=== PATIENT | male | born 1960 | race Caucasian/White ===

== ENCOUNTER → 2018-02-27 | Outpatient (CLI) | payer BC ==
[~2018-02-27] MED LIST: ACHYD1T PO; ALLO100T PO; ASPI-86 PO; CPR500T PO; HYDR-91 PO; HYDR1TAB66 PO; HYDR25TA4 PO; LEVO500T69 PO; LORA-877 PO; PHEN200T27 PO; POTA5TAB PO; SIMV40TA2 PO; TMSL.4C PO
--- NOTE | 2018-02-27 09:28 | Diagnostic Imaging Report ---
CLINICAL INDICATION: Patient states he has low back pain and leg numbness which is chronic. No known injury. EXAM: MRI of the lumbar spine performed without IV contrast. Sequences include sagittal T2, sagittal T1, sagittal T2 fat-sat, and axial T2. COMPARISON: None. FINDINGS: There is low T1 and low T2 signal seen throughout the visualized thoracolumbar spine and sacrum. The low T1 signal is not lower than the intervertebral disc signal. There is levoscoliosis of the lumbar spine. There is high T2 signal involving the left L4 pedicle/pars interarticularis region. There is Modic type II degenerative signal changes anteriorly throughout the lumbar spine with associated mild to moderately hypertrophic spurs throughout. There is facet arthropathy/hypertrophy involving the lumbar spine. The visualized distal thoracic spinal cord, conus medullaris, and cauda equina nerve roots are unremarkable. The conus medullaris tip is seen at the upper L2 vertebral body level. There is no significant paraspinal fluid collection or mass. T12-L1: There is mild diffuse disc bulge and moderate bilateral facet arthropathy. There is mild central canal narrowing. There is no significant neural foraminal narrowing. L1-L2: There is a diffuse disc bulge with mild loss of intervertebral disc height. There is moderate bilateral facet arthropathy. There is mild central canal narrowing. There is mild left neural foraminal narrowing. L2-L3: There is a diffuse disc bulge with hypertrophic disc spurs extending in the far right lateral region and right foraminal region. There is severe right facet arthropathy/hypertrophy and mild left facet arthropathy. There is mild central canal narrowing. There is mild to moderate right neural foraminal narrowing and no significant left neural foraminal narrowing. L3-L4: There is diffuse disc bulge with severe bilateral facet arthropathy/hypertrophy and ligamentum flavum buckling. There is severe central canal narrowing, severe right neural foraminal narrowing and mild to moderate left neural foraminal narrowing. There is mild loss of intervertebral disc height. L4-L5: There is a diffuse disc bulge with disc spurs extending into the foraminal regions bilaterally. There is severe bilateral facet arthropathy/hypertrophy and ligamentum flavum buckling. There is severe central canal narrowing and severe bilateral neural foraminal narrowing. There is ill-defined appearance of the bilateral L5 pars interarticularis region concerning for pars defects. There is no significant listhesis seen. There is also high T2 signal and prominent low T1 signal in the L4-L5 interspinous region with endplate irregularity. These findings may be seen with Baastrup's disease. L5-S1: There is an asymmetric disc bulge with disc spurs extending into the left foraminal region. There is bilateral facet arthropathy/hypertrophy which is severe on the left and moderate on the right. There is mild central canal narrowing due to prominence of the posterior epidural fat. There is mild right neural foraminal narrowing and severe left neural foraminal narrowing. IMPRESSION: 1. There is concern for bilateral L4 spondylolysis with no significant listhesis. There is mild edema seen in the left L4 pars interarticularis region. Unknown if this is related to pseudoarthrosis with degenerative changes or chronicity of this pars defect. CT scan of the lumbar spine is suggested for further evaluation. 2. There is severe multilevel lumbar spine degenerative disease, as described above with levoscoliosis of the lumbar spine. Dictated by: Dictated on workstation # [id number]
== END ==
LOC: RAD 07:42
PROVIDERS: ATTEND Chiropractor
DX: M51.17 Intervertebral disc disorders with radiculopathy, lumbosacral region (principal); M48.07 Spinal stenosis, lumbosacral region; M99.73 Connective tissue and disc stenosis of intervertebral foramina of lumbar region; M41.86 Other forms of scoliosis, lumbar region; M51.16 Intervertebral disc disorders with radiculopathy, lumbar region; M46.86 Other specified inflammatory spondylopathies, lumbar region; M47.26 Other spondylosis with radiculopathy, lumbar region
CPT/HCPCS: 72148

== ENCOUNTER 2022-09-13 12:12 | Inpatient (IN) | payer BC, MEDICARE ==
[~2022-09-13] VITALS: Ht 183 cm; Wt 160.1 kg
--- NOTE | 2022-09-13 12:49 | ED General ---
General Stated Complaint: AMS Source of Information: Patient, EMS Exam Limitations: Physical Impairments History of Present Illness Date Seen by Provider: September 13, 2022 Time Seen by Provider: 12:35 Initial Comments Patient is a 62-year-old male who presents to the emergency department with a chief complaint of weakness, reported confusion worsening over the last several days. patient has a history of liver disease with previous hepatic encephalopathy. His last labs from [facility] are with the patient and his ammonia level was about 127 at the beginning of July. Patient is alert to self and location currently. He is confused and frequently loses his train of thought. He states that he had 3 falls today. He states he did not hit his head or sustain any injury. He denies nausea and vomiting. He states his bowels are normal. No urinary difficulties. No rashes, fever. No cough or shortness of breath. is the one who called EMS services this afternoon. Timing/Duration: Other (Unknown) Severity: Moderate Associated Systoms: Denies Symptoms Allergies and Home Medications Allergies Coded Allergies: No Known Drug Allergies (Unverified , 12/18/10) Patient Home Medication List Home Medication List Reviewed: Yes Allopurinol (Allopurinol) 100 Mg Tablet, 100 MG PO DAILY, (Reported) Entered as Reported by: WISAM DAMON on 11/09/14 08 Aspirin ([facility] Aspirin) 81 Mg Tab.chew, 81 MG PO DAILY, (Reported) Entered as Reported by: HENRY TERRY on 12/18/10 0018 Hydrochlorothiazide (Hydrochlorothiazide) 25 Mg Tablet, 25 MG PO DAILY, (Reported) Entered as Reported by: WISAM DAMON on 11/09/1458 Hydrocodone Bit/Acetaminophen (Lorcet Plus 10/325 Mg) 1 Tab Tablet, 1-2 TAB PO Q4H PRN for PAIN Prescribed by: LYNNETTE ELLIOTT on 11/10/14 1319 Levofloxacin (Levaquin 500 Mg) 500 Mg Tab, 500 MG PO DAILY Prescribed by: LYNNETTE ELLIOTT on 11/10/14 1319 Loratadine/Pseudoephedrine Sul (Claritin-D 24 Hour Tablet) 1 Each Tab.sr.24h, 1 EACH PO DAILY, (Reported) Entered as Reported by: WISAM DAMON on 11/09/14 08 Phenazopyridine Hcl (Pyridium) 200 Mg Tablet, 200 MG PO TID PRN for DISCOMFORT Prescribed by: LYNNETTE ELLIOTT on 11/10/14 1319 Simvastatin (Zocor) 40 Mg Tablet, 40 MG PO HS, (Reported) Entered as Reported by: HNERY TERRY on 12/18/10 0018 Review of Systems Review of Systems Constitutional: see HPI EENTM: other (dry mouth) Respiratory: no symptoms reported Cardiovascular: no symptoms reported Gastrointestinal: no symptoms reported Genitourinary: no symptoms reported Musculoskeletal: no symptoms reported Skin: no symptoms reported All Other Systems Reviewed Negative Unless Noted: Yes Past Pirqjpi-Daihpa-Sjxiwa Hx Past Medical History Reproductive Disorders: No Sexually Transmitted Disease: No Kidney Stones Physical Exam Vital Signs Vital Signs - First Documented 09/13/22 12:12 Temp 36.9 Pulse 81 Resp 14 B/P (MAP) 141/95 (110) Pulse Ox 97 O2 Delivery Room Air Capillary Refill : Height, Weight, BMI Height: 6'1.00" Weight: 279lbs. oz. 126.215108ml; BMI Method: General Appearance: No Apparent Distress, WD/WN Eyes: Bilateral Eye Normal Inspection, Bilateral Eye PERRL, Bilateral Eye EOMI HEENT: Other (dry fissured tongue) Neck: Normal Inspection Respiratory: Lungs Clear, Normal Breath Sounds, No Accessory Muscle Use, No Respiratory Distress Cardiovascular: Regular Rate, Rhythm, Normal Peripheral Pulses Gastrointestinal: Soft, Other (+ fluid wave; no tense ascites) Extremity: Normal Inspection, Normal Range of Motion, Pedal Edema (1-2+) Skin: Normal Color, Warm/Dry Progress/Results/Core Measures Suspected Sepsis SIRS Temperature: Pulse: Respiratory Rate: Laboratory Tests 09/13/22 12:30: White Blood Count 6.3 Blood Pressure / Mean: Laboratory Tests 09/13/22 12:30: Creatinine 1.47H, INR Comment 1.4, Platelet Count 99L, Total Bilirubin 2.8H Results/Orders Lab Results Laboratory Tests Test 09/13/22 12:30 Range/Units White Blood Count 6.3 4.3-11.0 10^3/uL Red Blood Count 3.72 L 4.30-5.52 10^6/uL Hemoglobin 12.8 L 13.3-17.7 g/dL Hematocrit 37 L 40-54 % Mean Corpuscular Volume 100 H 80-99 fL Mean Corpuscular Hemoglobin 34 25-34 pg Mean Corpuscular Hemoglobin Concent 34 32-36 g/dL Red Cell Distribution Width 14.9 H 10.0-14.5 % Platelet Count 99 L 130-400 10^3/uL Mean Platelet Volume 11.7 9.0-12.2 fL Immature Granulocyte % (Auto) 0 % Neutrophils (%) (Auto) 46 42-75 % Lymphocytes (%) (Auto) 34 12-44 % Monocytes (%) (Auto) 11 0-12 % Eosinophils (%) (Auto) 8 0-10 % Basophils (%) (Auto) 1 0-10 % Neutrophils # (Auto) 2.9 1.8-7.8 10^3/uL Lymphocytes # (Auto) 2.1 1.0-4.0 10^3/uL Monocytes # (Auto) 0.7 0.0-1.0 10^3/uL Eosinophils # (Auto) 0.5 H 0.0-0.3 10^3/uL Basophils # (Auto) 0.1 0.0-0.1 10^3/uL Immature Granulocyte # (Auto) 0.0 0.0-0.1 10^3/uL Percent Immature Platelet Fraction 6.7 0.0-7.6 % Prothrombin Time 17.7 H 12.2-14.7 SEC INR Comment 1.4 0.8-1.4 Activated Partial Thromboplast Time 40 H 24-35 SEC Sodium Level 138 135-145 MMOL/L Potassium Level 4.4 3.6-5.0 MMOL/L Chloride Level 107 98-107 MMOL/L Carbon Dioxide Level 25 21-32 MMOL/L Anion Gap 6 5-14 MMOL/L Blood Urea Nitrogen 21 H 7-18 MG/DL Creatinine 1.47 H 0.60-1.30 MG/DL Estimat Glomerular Filtration Rate 53 BUN/Creatinine Ratio 14 Glucose Level 88 70-105 MG/DL Calcium Level 8.8 8.5-10.1 MG/DL Corrected Calcium 9.7 8.5-10.1 MG/DL Total Bilirubin 2.8 H 0.1-1.0 MG/DL Aspartate Amino Transf (AST/SGOT) 79 H 5-34 U/L Alanine Aminotransferase (ALT/SGPT) 54 0-55 U/L Alkaline Phosphatase 135 40-136 U/L Ammonia 132 H 11-32 UMOL/L Total Protein 7.8 6.4-8.2 GM/DL Albumin 2.9 L 3.2-4.5 GM/DL Smear Scan YES My Orders Orders - DORON CALRK MD Ed Iv/Invasive Line Start (09/13/22 12:49) Cbc With Automated Diff (09/13/22 12:49) Comprehensive Metabolic Panel (09/13/22 12:49) Ammonia (09/13/22 12:49) Protime With Inr (09/13/22 12:49) Partial Thromboplastin Time (09/13/22 12:49) Vital Signs/I&O 09/13/22 12:12 Temp 36.9 Pulse 81 Resp 14 B/P (MAP) 141/95 (110) Pulse Ox 97 O2 Delivery Room Air Capillary Refill : Progress Note : Time: 13:27 Progress Note Patient seen and evaluated by me. Evaluation today includes physical exam, CBC, Chem-12, ammonia level, PT/PTT. Physical exam pertinent for well-developed well-nourished obese male who appears in no acute distress. Pleasant, affable. Oriented to person and situation. Oral mucosa is extremely dry. Heart is regular, lungs are clear. Abdomen slightly distended with positive fluid wave. No skin changes or other stigmata of liver disease observed on the abdomen. He does have 2+ pitting edema. Slight tremor to his hands but no defined asterixis. Differential diagnosis based on history and physical, hepatic encephalopathy, volume depletion. Labs reviewed by me, CBC shows a white count of 6.3 hemoglobin of 12.8, hematocrit 37, platelet count of 99. PT is 17.7 PTT 40, INR 1.4. His chemistry is normal/unremarkable except for a BUN of 21 and a creatinine of 1.47. Total bili is 2.8. AST 47 albumin slightly low at 2.9. His ammonia is 132. Medical records were from [facility] were reviewed from outpatient labs obtained on July 27, 2022. This shows an increase in his serum creatinine from 0.94 at that time to 1.47 today. At that time also his ammonia level was 123. His total bilirubin has also increased from 2.2-2.8. Patient does appear volume depleted. We will hold off on IV fluids at this time secondary to his liver disease and we do not want to volume overload him. I believe the majority of the reason the patient is here because he is a little bit too much to handle at home for his . Will admit to the medical floor observation after discussion with Dr. Navarrete, [facility]. Departure Communication (Admissions) Time/Spoke to Admitting Phy: 13:[address] Navarrete (hospitalist [facility]) who accepts patient for admission Impression Primary Impression: Hepatic encephalopathy Additional Impression: Increase in creatinine Disposition: ADMITTED INPATIENT Condition: Stable Admissions Decision to Admit Reason: Admit from ER (General) Decision to Admit/Date: September 13, 2022 Time/Decision to Admit Time: 13:27 Departure-Patient Inst. Referrals: MARIJA LINTON MD (PCP/Family) Primary Care Physician DORON CLARK MD September 13, 2022 12:49
[2022-09-13 12:55] LABS: HEMOGLOBIN 12.8 g/dL (13.3-17.7)
[2022-09-13 12:57] LABS: ALBUMIN 2.9 GM/DL (3.2-4.5); BASOPHILS # (AUTO) 0.1 10^3/uL (0.0-0.1); BASOPHILS % (AUTO) 1 % (0-10); EOSINOPHILS # (AUTO) 0.5 10^3/uL (0.0-0.3); EOSINOPHILS % (AUTO) 8 % (0-10); HEMATOCRIT 37 % (40-54); LYMPHOCYTES # (AUTO) 2.1 10^3/uL (1.0-4.0); LYMPHOCYTES % (AUTO) 34 % (12-44); MEAN CORPUSCULAR HEMOGLOBIN 34 pg (25-34); MEAN CORPUSCULAR HGB CONC 34 g/dL (32-36); MEAN CORPUSCULAR VOLUME 100 fL (80-99); MEAN PLATELET VOLUME 11.7 fL (9.0-12.2); MONOCYTES # (AUTO) 0.7 10^3/uL (0.0-1.0); MONOCYTES % (AUTO) 11 % (0-12); NEUTROPHILS # (AUTO) 2.9 10^3/uL (1.8-7.8); NEUTROPHILS % (AUTO) 46 % (42-75); PLATELET COUNT 99 10^3/uL (130-400); POTASSIUM 4.4 MMOL/L (3.6-5.0); WHITE BLOOD COUNT 6.3 10^3/uL (4.3-11.0)
[2022-09-13 12:58] LABS: CALCIUM 8.8 MG/DL (8.5-10.1)
[2022-09-13 12:59] LABS: TOTAL PROTEIN 7.8 GM/DL (6.4-8.2)
[2022-09-13 13:00] LABS: INR 1.4 (0.8-1.4); PROTHROMBIN TIME PATIENT 17.7 SEC (12.2-14.7)
[2022-09-13 13:01] LABS: BILIRUBIN,TOTAL 2.8 MG/DL (0.1-1.0)
[2022-09-13 13:03] LABS: CREATININE SERUM 1.47 MG/DL (0.60-1.30); SMEAR SCAN COMMENT YES
[2022-09-13] MEDS ORDERED: LACT10SO3 PO (15:03)
[2022-09-13] MEDS ORDERED: SIMV40TA25 PO (15:04)
[2022-09-13] MEDS ORDERED: METO50TA7 PO (15:04)
[2022-09-13] MEDS ORDERED: POTA15TA9 PO (15:04)
[2022-09-13] MEDS ORDERED: GABA300C PO ×2 (15:05)
[2022-09-13] MEDS ORDERED: TRAM50TA3 PO (15:06)
[2022-09-13] MEDS ORDERED: SPIR50TA PO (15:07)
[2022-09-13] MEDS ORDERED: FURO40TA4 PO (15:07)
[2022-09-13] MEDS ORDERED: ALLO100T PO (15:07)
[2022-09-13] MEDS ORDERED: ASPI-1238 PO (15:08)
[2022-09-13] MEDS ORDERED: CYCL10TA25 PO (15:08)
[2022-09-13] MEDS ORDERED: MELO15TA39 PO (15:08)
[2022-09-13] MEDS ORDERED: CHOL200059 PO (15:09)
[2022-09-13] MEDS ORDERED: MAGN250T13 PO (15:09)
[2022-09-13 15:10] VITALS: BP 141/95
[2022-09-13] MEDS ORDERED: RT-ALBUTEROL SULF 2.5 MG/3 ML PRE-MIX VIAL INH PRN (15:30)
[2022-09-13 15:59] VITALS: BP 127/70
[2022-09-13] MEDS: NS IV 1000 ML 1,000 ML IV SCH (16:53)
[2022-09-13] MEDS: KCL 10 MEQ TAB (MICRO K) PO SCH (16:54)
[2022-09-13 19:36] VITALS: BP 120/68
[2022-09-13] MEDS: GABAPENTIN 300 MG (NEURONTIN) CAP PO SCH (19:39)
[2022-09-13] MEDS: LACTULOSE SYRUP 10GM/15ML (ENULOSE) 30ML UDC PO SCH (19:39)
[2022-09-14] VITALS (7 sets, daily range): BP systolic 109–139; BP diastolic 67–81
[2022-09-14] MEDS: NS IV 1000 ML 1,000 ML IV SCH ×3 (04:57→19:11)
[2022-09-14 05:52] LABS: POTASSIUM 4.3 MMOL/L (3.6-5.0)
[2022-09-14 05:53] LABS: CALCIUM 8.6 MG/DL (8.5-10.1)
[2022-09-14 05:58] LABS: CREATININE SERUM 1.18 MG/DL (0.60-1.30)
[2022-09-14] MEDS: FUROSEMIDE 40 MG (LASIX) TAB PO SCH (06:04)
[2022-09-14] MEDS ORDERED: CYCLOBENZAPRINE 10 MG (FLEXERIL) TAB PO PRN (07:45)
[2022-09-14] MEDS: VITAMIN D3 25 MCG (1,000 UNITS) TABLET PO SCH (08:16)
[2022-09-14] MEDS: GABAPENTIN 300 MG (NEURONTIN) CAP PO SCH ×3 (08:17→21:34)
[2022-09-14] MEDS: SPIRONOLACTONE 25 MG (ALDACTONE) TAB PO SCH (08:17)
[2022-09-14] MEDS: KCL 10 MEQ TAB (MICRO K) PO SCH ×2 (08:18→18:26)
[2022-09-14] MEDS: ASPIRIN E.C. 81 MG (ECOTRIN) TAB PO SCH (08:18)
[2022-09-14] MEDS: meTOproloL SUCCINATE 50 MG (TOPROL XL) TAB PO SCH (08:19)
[2022-09-14] MEDS: LACTULOSE SYRUP 10GM/15ML (ENULOSE) 30ML UDC PO SCH ×3 (08:19→21:34)
[2022-09-14] MEDS: ALLOPURINOL 100 MG (ZYLOPRIM) TAB PO SCH (08:19)
--- NOTE | 2022-09-14 08:53 | Physical Therapy Evaluation ---
PT Evaluation-General Medical Diagnosis Admission Date September 13, 2022 at 14:44 Medical Diagnosis: hepatic encephalopathy Onset Date: September 13, 2022 Therapy Diagnosis Therapy Diagnosis: generalized weakness/impaired mobility Height/Weight Height (Feet): 6 Height (Inches): 1.00 Weight (Pounds): 279 Precautions Precautions/Isolations: Fall Prevention, Standard Precautions Referral Physician: Landon Reason for Referral: Evaluation/Treatment Medical History Current History ER secondary to confusion and weakness (3 falls per report) Social History Home: Single Level Current Living Status: Spouse Prior Prior Level of Function SCALE: Activities may be completed with or without assistive devices. 6-Dpzzeiaakt-lfmlmkz completes the activity by him/herself with no assistance from a helper. 5-Set-up or Clean-up Assistance-helper sets up or cleans up; patient completes activity. [place] assists only prior to or following the activity. 4-Supervision or Touching Assistance-helper provides verbal cues and/or touching/steadying and/or contact guard assistance as patient completes activity. Assistance may be provided throughout the activity or intermittently. 3-Partial/Moderate Assistance-helper does LESS THAN HALF the effort. [place] lifts, holds or supports trunk or limbs, but provides less than half the effort. 2-Substantial/Maximal Assistance-helper does MORE THAN HALF the effort. [place] lifts or holds trunk or limbs and provides more than half the effort. 5-Taaorpezn-pgnwnq does ALL the effort. Patient does none of the effort to complete the activity. Or, the assistance of 2 or more helpers is required for the patient to complete the activity. If activity was not attempted, code reason: 7-Patient Refused. 9-Not Applicable-not attempted and the patient did not perform the activity before the current illness, exacerbation or injury. 10-Not Attempted due to Environmental Limitations-(lack of equipment, weather restraints, etc.). 88-Not Attempted due to Medical Conditions or Safety Concerns. Bed Mobility: 6 Transfers (B,C,W/C): 6 Gait: 6 Indoor Mobility (Ambulation): Independent Prior Devices Use: None (per patient) PT Evaluation-Current Subjective Patient very confused but agrees to PT. Objective Patient Orientation: Person, Place Attachments: IV ROM/Strength ROM Lower Extremities limited due to edema Strength Lower Extremities 3-/5 grossly bilateral LE all planes Integumentary/Posture Bladder Incontinence: Yes Posture WFL Neuromuscular (Tone, Coordination, Reflexes) diminished coordination and motor planning Sensory Vision: Functional Hearing: Functional Transfers Lying to Sitting/Side of Bed(Q: 2 Sit to Stand (QC): 2 Chair/Dkb-vw-Xwtgi Xfer(QC): 2 Gait Mode of Locomotion: Walk Anticipated Mode of Locomotion: Walk Distance: 5 steps Gait Assistive Device: FWW Comments/Gait Description very unsteady Balance Sitting Static: Fair Sitting Dynamic: Fair Standing Static: Poor Standing Dynamic: Poor Assessment/Needs Patient will benefit from skilled PT to address functional strength and mobility to improve current LOF. Patient demonstrates severely diminished motor planning and coordination. Rehab Potential: Guarded PT Help Desk Intern Goals Shelter Goals PT Help Desk Intern Goals Time Frame: Oct 06, 2022 Roll Left & Right (QC): 6 Sit to Lying (QC): 6 Lying-Sitting on Side/Bed(QC): 6 Sit to Stand (QC): 6 Chair/Vmd-eb-Nphdp Xfer(QC): 6 Toilet Transfer (QC): 6 Walk 10 feet (QC): 5 Walk 50ft with 2 Turns (QC): 5 Walk 150 ft (QC): 5 PT Plan Problem List Problem List: Activity Tolerance, Functional Strength, Safety, Balance, Gait, Transfer, Bed Mobility, ROM Treatment/Plan Treatment Plan: Continue Plan of Care Treatment Plan: Bed Mobility, Education, Functional Activity Huang, Functional Strength, Gait, Safety, Therapeutic Exercise, Transfers Treatment Duration: Oct 06, 2022 Frequency: 6 times per week Estimated Hrs Per Day: .25 hour per day Patient and/or Family Agrees t: Yes Time Time In: 710 Time Out: 738 DATE: September 14, 2022 Total Billed Treatment Time: 28 Total Billed Treatment 1 visit EVModC 15 min FA 13 min TAMARA MCKINNEY PT September 14, 2022 08:53
--- NOTE | 2022-09-14 10:20 | History & Physical ---
HPI History of Present Illness: Pt sitting up in chair, unable to provide much history. He can state his name and that he is in the hospital. When asked why he came to the hospital he says "What do you mean?". When asked what symptoms he was having that made him come to the ER, he stated leg pain. He is unable to provide detail about the leg pain, including which leg, and he denies any falls. History from : Has been off of work for a little more than 2 years, originally for sciatic nerve issue, but in last year or year and a half, reports Dr. Levi had called and asked about his last drink, she states he has never drank. That's when they found out about his elevated ammonia and he has slowly gotten worse. He has had bowel trouble for a long time, having hard bowel movements and difficulty having BM. He started on Linzess at some point, and then was switched to lactulose. He was taking 45 ml four times per day, and he was still not having regular bowel movement, having to eat a lot of prunes to even have a BM which isn't every day. He has been having weakness in legs and confusion. At one point recently he did not remember her birthday, that was about 6-7 months ago and he has gradually had short term memory confusion wor sening. She just talked to him on the phone and could remember that he wants to go home to her, and that she can't get around by herself. She notes he has weakness in legs and tremor in his hands. Once he put a "cup of soup" in the microwave with no water and set off the smoke alarm and she hasn't allowed him in the kitchen anymore. Yesterday morning things came to a head, they were getting up out of bed, he took his morning meds, she has to put them in his mouth otherwise he'll just stare at them and forget what he is doing with them. To get from the bed to the bathroom is a very short distance, and he held on to bed, then dresser and she tried to see if he could use her old walker, he got to the bathroom and sometimes seems to have no control over his bladder. Yesterday he stood at the side of the bed and when she asked if he was going to the bathroom he just stared at her, then she heard something and realized he was peeing standing by the bed. When she asked if he felt it and knew what he was doing, he just said "huh?". His is a nurse. She states he does have diagnosis of cirrhosis of the liver and hepatic encephalopathy. He is the youngest of 10 siblings. She does not know what led to his cirrhosis. She does think he had a bought of drinking in the 80s when his mother but she didn't know him then. His has COPD and has to use a walker to get around. She can't drive. She had an attempted gastric bypass in 2002 and has had multiple intestinal issues since then. Source: patient Exam Limitations: clinical condition Date seen by provider: September 14, 2022 Time Seen by Provider: 09:15 Attending Physician [place] PCP Admitting Physician: Bj Navarrete MD Attending Physician: Bj Navarrete MD Consult Date of Admission September 13, 2022 at 14:44 Home Medications Home Medications Reviewed patient Home Medication Reconciliation performed by pharmacy medication reconciliations dealer support technician and/or nursing. Patients Allergies have been reviewed. Allergies Coded Allergies: No Known Drug Allergies (Unverified , 12/18/10) [id number]-Jbisyv Hx Patient Social History Smoking Status: Former Smoker Alcohol Use?: No Have you traveled recently?: No Past Medical History PMHx: per , patient unable to provide Cirrhosis Hepatic encephalopathy Sciatica Nephrolithiasis Hypertension Hyperlipidemia SurgHx: none Review of Systems ([facility]) Constitutional: other (unable to obtain due to patient condition) Reviewed Test Results Reviewed Test Results Lab Laboratory Tests Test 09/13/22 12:30 09/14/22 05:30 Range/Units White Blood Count 6.3 4.3-11.0 10^3/uL Red Blood Count 3.72 L 4.30-5.52 10^6/uL Hemoglobin 12.8 L 13.3-17.7 g/dL Hematocrit 37 L 40-54 % Mean Corpuscular Volume 100 H 80-99 fL Mean Corpuscular Hemoglobin 34 25-34 pg Mean Corpuscular Hemoglobin Concent 34 32-36 g/dL Red Cell Distribution Width 14.9 H 10.0-14.5 % Platelet Count 99 L 130-400 10^3/uL Mean Platelet Volume 11.7 9.0-12.2 fL Immature Granulocyte % (Auto) 0 % Neutrophils (%) (Auto) 46 42-75 % Lymphocytes (%) (Auto) 34 12-44 % Monocytes (%) (Auto) 11 0-12 % Eosinophils (%) (Auto) 8 0-10 % Basophils (%) (Auto) 1 0-10 % Neutrophils # (Auto) 2.9 1.8-7.8 10^3/uL Lymphocytes # (Auto) 2.1 1.0-4.0 10^3/uL Monocytes # (Auto) 0.7 0.0-1.0 10^3/uL Eosinophils # (Auto) 0.5 H 0.0-0.3 10^3/uL Basophils # (Auto) 0.1 0.0-0.1 10^3/uL Immature Granulocyte # (Auto) 0.0 0.0-0.1 10^3/uL Percent Immature Platelet Fraction 6.7 0.0-7.6 % Prothrombin Time 17.7 H 12.2-14.7 SEC INR Comment 1.4 0.8-1.4 Activated Partial Thromboplast Time 40 H 24-35 SEC Sodium Level 138 137 135-145 MMOL/L Potassium Level 4.4 4.3 3.6-5.0 MMOL/L Chloride Level 107 110 H 98-107 MMOL/L Carbon Dioxide Level 25 18 L 21-32 MMOL/L Anion Gap 6 9 5-14 MMOL/L Blood Urea Nitrogen 21 H 20 H 7-18 MG/DL Creatinine 1.47 H 1.18 0.60-1.30 MG/DL Estimat Glomerular Filtration Rate 53 69 BUN/Creatinine Ratio 14 17 Glucose Level 88 77 70-105 MG/DL Calcium Level 8.8 8.6 8.5-10.1 MG/DL Corrected Calcium 9.7 8.5-10.1 MG/DL Total Bilirubin 2.8 H 0.1-1.0 MG/DL Aspartate Amino Transf (AST/SGOT) 79 H 5-34 U/L Alanine Aminotransferase (ALT/SGPT) 54 0-55 U/L Alkaline Phosphatase 135 40-136 U/L Ammonia 132 H 11-32 UMOL/L Total Protein 7.8 6.4-8.2 GM/DL Albumin 2.9 L 3.2-4.5 GM/DL Smear Scan YES Physical Exam-([facility]) Physical Exam Vital Signs VS - Last 72 Hours, by Label 09/13/22 09/13/22 09/13/22 09/13/22 12:12 14:43 15:00 15:10 Temp 36.9 36.0 36.9 Pulse 81 89 81 Resp 14 16 B/P (MAP) 141/95 (110) 122/68 Pulse Ox 97 95 97 97 O2 Delivery Room Air Room Air Room Air O2 Flow Rate 0.00 FiO2 21 09/13/22 09/13/22 09/13/22 09/13/22 15:20 15:59 19:31 19:36 Temp 36.5 36.6 Pulse 80 85 Resp 18 18 B/P (MAP) 127/70 (89) 120/68 (85) Pulse Ox 98 97 O2 Delivery Room Air Room Air Room Air Room Air O2 Flow Rate 0.00 0.00 FiO2 98 09/13/22 09/14/22 09/14/22 09/14/22 20:00 00:00 03:34 07:15 Temp 36.6 36.5 Pulse 77 83 Resp 18 18 B/P (MAP) 122/67 (85) 116/68 (84) Pulse Ox 97 96 O2 Delivery Room Air Room Air Room Air Room Air 09/14/22 09/14/22 09/14/22 08:00 08:02 12:13 Temp 36.4 36.6 Pulse 80 83 Resp 18 18 B/P (MAP) 109/69 (82) 128/81 (97) Pulse Ox 97 97 98 O2 Delivery Room Air Room Air Room Air O2 Flow Rate 0.00 Capillary Refill : Less Than 3 Seconds General Appearance: no apparent distress HEENT: PERRL/EOMI Respiratory: lungs clear, normal breath sounds Cardiovascular: regular rate, rhythm, no murmur Gastrointestinal: normal bowel sounds, non tender, soft Extremities: pedal edema Neurologic/Psychiatric: rubber stamps and dies supervisor II-XII nml as tested (slow to follow instructions), alert, abnormal cerebellar tests (able to do finger to nose testing but requires significant coaching, and is very slow to move finger out to touch examiner), other (no asterixis, oriented to self only) Skin: warm/dry Assessment/Plan Assessment/Plan Admission Status: Observation (1) Hepatic encephalopathy Status: Chronic Assessment & Plan: Ammonia 132, per has been even higher at times outpatient. Last BM two days ago and was "medium" per . Given failure of oral lactulose at home, will start enemas and rifaximin. Check UA and CXR for possible infection causing worsening encephalopathy. (2) Acute kidney injury Status: Acute Assessment & Plan: Uncertain etiology, improved this am. (3) Debility Assessment & Plan: Unclear how much is related to encephalopathy vs underlying, has chronic back pain with history of injections as well. PT. (4) Cirrhosis Status: Chronic Assessment & Plan: reports unknown etiology, clinic chart indicates CONTRERAS. Hep C negative in 2019. Labs consistent with baseline for him per clinic chart review. (5) Hypertension Status: Chronic BJ NAVARRETE MD September 14, 2022 10:20
[2022-09-14] MEDS ORDERED: LACTULOSE 10 GM/15 ML 30 ML POUR BOTTLE FOR ENEMA PR SCH ×2 (12:00→18:00)
[2022-09-14] MEDS: RIFAXIMIN 550 MG TABLET (XIFAXAN) PO SCH ×2 (12:22→21:34)
[2022-09-14 13:31] LABS: BILIRUBIN,URINE NEGATIVE (NEGATIVE); CLARITY,URINE CLEAR; COLOR,URINE YELLOW; GLUCOSE, URINE (UA) NEGATIVE (NEGATIVE); KETONES,URINE NEGATIVE (NEGATIVE); LEUKOCYTE ESTERASE ,URINE 1+ (NEGATIVE); NITRITE,URINE NEGATIVE (NEGATIVE); PROTEIN,URINE NEGATIVE (NEGATIVE)
[2022-09-14 13:42] LABS: BACTERIA,URINE FEW /HPF; RBC,URINE 25-50 /HPF
--- NOTE | 2022-09-14 15:42 | Diagnostic Imaging Report ---
INDICATION: Confusion, shortness of breath. FINDINGS: Heart size upper limits. There is some mild prominence of the central vascularity but the lungs are clear. No edema, pneumonia, effusion or pneumothorax. IMPRESSION: Clear lungs with no acute pleural pathology. Upper limits heart size and venous distention. Dictated by: Dictated on workstation # [id number]
[2022-09-15 03:40] VITALS: BP 126/73
[2022-09-15 06:07] LABS: HEMOGLOBIN 12.2 g/dL (13.3-17.7); WHITE BLOOD COUNT 7.9 10^3/uL (4.3-11.0)
[2022-09-15] MEDS: FUROSEMIDE 40 MG (LASIX) TAB PO SCH (06:08)
--- NOTE | 2022-09-15 06:14 | Progress Note - Hospitalist ---
Subjective HPI/CC On Admission Date Seen by Provider: September 15, 2022 Time Seen by Provider: 11:00 Subjective/Events-last exam No major issues Lactulose enemas discontinued Bowels are moving well now Less confusion Reviewed labs Review of Systems General: Fatigue, Malaise Neurological: Confusion Objective Exam Vital Signs Vital Signs Date Time Temp Pulse Resp B/P (MAP) Pulse Ox O2 Delivery O2 Flow Rate FiO2 09/15/22 11:00 36.4 83 20 121/63 (82) 97 Room Air 09/14/22 08:00 0.00 09/13/22 19:31 98 Capillary Refill : Less Than 3 Seconds General Appearance: No Apparent Distress, WD/WN, Chronically ill Respiratory: Lungs Clear, Normal Breath Sounds Cardiovascular: Regular Rate, Rhythm Neurologic/Psychiatric: Alert, Depressed Affect, Disoriented Results/Procedures Lab Laboratory Tests 09/15/22 05:41 Patient resulted labs reviewed. Assessment/Plan Assessment and Plan Assess & Plan/Chief Complaint (1) Hepatic encephalopathy (2) Acute kidney injury (3) Debility (4) Cirrhosis (5) Hypertension Status: Chronic Obesity Plan: Therapy Continue lactulose Supportive care ERIKA MENDES DO September 15, 2022 06:14
[2022-09-15 06:34] LABS: ALBUMIN 2.7 GM/DL (3.2-4.5); BILIRUBIN,TOTAL 3.2 MG/DL (0.1-1.0); CALCIUM 8.6 MG/DL (8.5-10.1); CREATININE SERUM 0.99 MG/DL (0.60-1.30); TOTAL PROTEIN 7.3 GM/DL (6.4-8.2)
[2022-09-15 08:23] VITALS: BP 124/68
--- NOTE | 2022-09-15 09:05 | Physical Therapy Daily Note ---
PT Daily Note-Current Subjective Patient remains very confused with difficulty following and complete simple direction and tasks. Pain Section J - Health Conditions 1. Rarely or not at all 2. Occasionally 3. Frequently 4. Almost constantly 8. Unable to answer Pain Effect on Sleep: 8 Pain Interference with Therapy: 8 Pain Interference w/Day-to-Day: 8 Mental Status Patient Orientation: Confused Attachments: IV Transfers SCALE: Activities may be completed with or without assistive devices. 5-Sqxprfiblf-bflnbps completes the activity by him/herself with no assistance from a helper. 5-Set-up or Clean-up Assistance-helper sets up or cleans up; patient completes activity. Clint assists only prior to or following the activity. 4-Supervision or Touching Assistance-helper provides verbal cues and/or touch ing/steadying and/or contact guard assistance as patient completes activity. Assistance may be provided throughout the activity or intermittently. 3-Partial/Moderate Assistance-helper does LESS THAN HALF the effort. Clint lifts, holds or supports trunk or limbs, but provides less than half the effort. 2-Substantial/Maximal Assistance-helper does MORE THAN HALF the effort. Clint lifts or holds trunk or limbs and provides more than half the effort. 3-Brkkrlryh-dwuajr does ALL the effort. Patient does none of the effort to complete the activity. Or, the assistance of 2 or more helpers is required for the patient to complete the activity. If activity was not attempted, code reason: 7-Patient Refused. 9-Not Applicable-not attempted and the patient did not perform the activity before the current illness, exacerbation or injury. 10-Not Attempted due to Environmental Limitations-(lack of equipment, weather restraints, etc.). 88-Not Attempted due to Medical Conditions or Safety Concerns. Lying to Sitting/Side of Bed(Q: 3 Sit to Stand (QC): 2 Chair/Qqi-ib-Uusub Xfer(QC): 2 Toilet Transfer (QC): 2 Gait Training Distance: 10' Walk 10 feet (QC): 2 Walk 50 ft with 2 Turns(QC): 88 Gait Assistive Device: FWW difficulty with sequencing with FWW use to ambulate and make turns to sit on commode and recliner Assessment Patient continues to be very confused and becomes slightly agitated due to inability to complete call to spouse. Patient is up in recliner with chair alarm activated. RN assist to cleanse after BM. PT Half-Way Goals Half-Way Goals PT Cleaner And Trimmer Goals Time Frame: Oct 06, 2022 Roll Left & Right (QC): 6 Sit to Lying (QC): 6 Lying-Sitting on Side/Bed(QC): 6 Sit to Stand (QC): 6 Chair/Xzn-fu-Sfvbu Xfer(QC): 6 Toilet Transfer (QC): 6 Walk 10 feet (QC): 5 Walk 50ft with 2 Turns (QC): 5 Walk 150 ft (QC): 5 PT Plan Treatment/Plan Treatment Plan: Continue Plan of Care Treatment Plan: Bed Mobility, Education, Functional Activity Huang, Functional Strength, Gait, Safety, Therapeutic Exercise, Transfers Treatment Duration: Oct 06, 2022 Frequency: 6 times per week Estimated Hrs Per Day: .25 hour per day Patient and/or Family Agrees t: Yes Time Time In: 735 Time Out: 758 DATE: September 15, 2022 Total Billed Treatment Time: 23 Total Billed Treatment 1 visit FA x 2 23 min TAMARA MCKINNEY PT September 15, 2022 09:05
[2022-09-15] MEDS: RIFAXIMIN 550 MG TABLET (XIFAXAN) PO SCH ×2 (09:38→20:04)
[2022-09-15] MEDS: LACTULOSE SYRUP 10GM/15ML (ENULOSE) 30ML UDC PO SCH ×3 (09:38→20:04)
[2022-09-15] MEDS: GABAPENTIN 300 MG (NEURONTIN) CAP PO SCH ×3 (09:38→20:04)
[2022-09-15] MEDS: ASPIRIN E.C. 81 MG (ECOTRIN) TAB PO SCH (09:38)
[2022-09-15] MEDS: VITAMIN D3 25 MCG (1,000 UNITS) TABLET PO SCH (09:38)
[2022-09-15] MEDS: ALLOPURINOL 100 MG (ZYLOPRIM) TAB PO SCH (09:38)
[2022-09-15] MEDS: meTOproloL SUCCINATE 50 MG (TOPROL XL) TAB PO SCH (09:38)
[2022-09-15] MEDS: MAGNESIUM OXIDE (MAG-OX)400 MG TAB PO SCH (09:39)
[2022-09-15] MEDS: SPIRONOLACTONE 25 MG (ALDACTONE) TAB PO SCH (09:39)
[2022-09-15] MEDS: KCL 10 MEQ TAB (MICRO K) PO SCH ×2 (09:39→18:35)
[2022-09-15 11:00] VITALS: BP 121/63
[2022-09-15 15:46] VITALS: BP 121/66
[2022-09-15 20:05] VITALS: BP 118/74
[2022-09-15 23:24] VITALS: BP 120/68
[2022-09-16] MEDS: NS IV 1000 ML 1,000 ML IV SCH (00:28)
[2022-09-16 03:07] VITALS: BP 116/72
[2022-09-16] MEDS: FUROSEMIDE 40 MG (LASIX) TAB PO SCH (05:15)
--- NOTE | 2022-09-16 07:14 | Progress Note - Hospitalist ---
Subjective HPI/CC On Admission Date Seen by Provider: September 16, 2022 Time Seen by Provider: 11:00 Subjective/Events-last exam No major changes Confusion is improved Labs stable No falls No major concerns Review of Systems General: Fatigue, Malaise Cardiovascular: Edema Neurological: Confusion Objective Exam Vital Signs Vital Signs Date Time Temp Pulse Resp B/P (MAP) Pulse Ox O2 Delivery O2 Flow Rate FiO2 09/16/22 15:10 36.7 84 20 120/64 (82) 97 Room Air 09/16/22 07:35 0.00 09/13/22 19:31 98 Capillary Refill : Less Than 3 Seconds General Appearance: No Apparent Distress, WD/WN, Chronically ill Respiratory: Lungs Clear, Normal Breath Sounds Cardiovascular: Regular Rate, Rhythm Neurologic/Psychiatric: Alert, Depressed Affect, Disoriented Results/Procedures Lab Patient resulted labs reviewed. Assessment/Plan Assessment and Plan Assess & Plan/Chief Complaint (1) Hepatic encephalopathy (2) Acute kidney injury (3) Debility (4) Cirrhosis (5) Hypertension Status: Chronic Obesity Plan: Therapy Continue lactulose Supportive care Hep-Lock IV fluid ERIKA MENDES DO September 16, 2022 07:14
[2022-09-16 08:00] VITALS: BP 124/70
[2022-09-16 08:38] VITALS: BP 124/70
[2022-09-16] MEDS: LACTULOSE SYRUP 10GM/15ML (ENULOSE) 30ML UDC PO SCH ×3 (09:04→19:53)
[2022-09-16] MEDS: GABAPENTIN 300 MG (NEURONTIN) CAP PO SCH ×3 (09:05→19:53)
[2022-09-16] MEDS: ALLOPURINOL 100 MG (ZYLOPRIM) TAB PO SCH (09:05)
[2022-09-16] MEDS: VITAMIN D3 25 MCG (1,000 UNITS) TABLET PO SCH (09:05)
[2022-09-16] MEDS: meTOproloL SUCCINATE 50 MG (TOPROL XL) TAB PO SCH (09:06)
[2022-09-16] MEDS: MAGNESIUM OXIDE (MAG-OX)400 MG TAB PO SCH (09:06)
[2022-09-16] MEDS: ASPIRIN E.C. 81 MG (ECOTRIN) TAB PO SCH (09:06)
[2022-09-16] MEDS: SPIRONOLACTONE 25 MG (ALDACTONE) TAB PO SCH (09:06)
[2022-09-16] MEDS: KCL 10 MEQ TAB (MICRO K) PO SCH ×2 (09:06→17:14)
[2022-09-16] MEDS: RIFAXIMIN 550 MG TABLET (XIFAXAN) PO SCH ×2 (09:06→19:53)
[2022-09-16 11:42] VITALS: BP 126/66
[2022-09-16 15:10] VITALS: BP 120/64
[2022-09-16 19:05] VITALS: BP 113/70
[2022-09-17] VITALS (7 sets, daily range): BP systolic 103–126; BP diastolic 50–84
--- NOTE | 2022-09-17 05:54 | Progress Note - Hospitalist ---
Subjective HPI/CC On Admission Date Seen by Provider: September 17, 2022 Time Seen by Provider: 11:00 Subjective/Events-last exam Patient doing the same less confusion Check meds and labs No falls Discontinue catheter today Objective Exam Vital Signs Vital Signs Date Time Temp Pulse Resp B/P (MAP) Pulse Ox O2 Delivery O2 Flow Rate FiO2 09/17/22 15:56 36.6 88 18 124/79 (94) 97 Room Air 09/16/22 07:35 0.00 09/13/22 19:31 98 Capillary Refill : Less Than 3 Seconds General Appearance: No Apparent Distress, WD/WN, Chronically ill Respiratory: Lungs Clear Cardiovascular: Regular Rate, Rhythm Extremity: Pedal Edema Neurologic/Psychiatric: Alert, Oriented x3, Disoriented Results/Procedures Lab Patient resulted labs reviewed. Assessment/Plan Assessment and Plan Assess & Plan/Chief Complaint (1) Hepatic encephalopathy (2) Acute kidney injury (3) Debility (4) Cirrhosis (5) Hypertension Status: Chronic Obesity Plan: Therapy Continue lactulose Supportive care Hep-Lock IV fluid DC catheter ERIKA MENDES DO September 17, 2022 05:54
[2022-09-17] MEDS: FUROSEMIDE 40 MG (LASIX) TAB PO SCH (06:20)
[2022-09-17] MEDS: KCL 10 MEQ TAB (MICRO K) PO SCH ×2 (08:30→17:21)
[2022-09-17] MEDS: meTOproloL SUCCINATE 50 MG (TOPROL XL) TAB PO SCH (08:30)
[2022-09-17] MEDS: RIFAXIMIN 550 MG TABLET (XIFAXAN) PO SCH ×2 (08:30→19:57)
[2022-09-17] MEDS: SPIRONOLACTONE 25 MG (ALDACTONE) TAB PO SCH (08:31)
[2022-09-17] MEDS: ASPIRIN E.C. 81 MG (ECOTRIN) TAB PO SCH (08:31)
[2022-09-17] MEDS: GABAPENTIN 300 MG (NEURONTIN) CAP PO SCH ×3 (08:31→19:57)
[2022-09-17] MEDS: ALLOPURINOL 100 MG (ZYLOPRIM) TAB PO SCH (08:31)
[2022-09-17] MEDS: MAGNESIUM OXIDE (MAG-OX)400 MG TAB PO SCH (08:31)
[2022-09-17] MEDS: VITAMIN D3 25 MCG (1,000 UNITS) TABLET PO SCH (08:31)
[2022-09-17] MEDS: LACTULOSE SYRUP 10GM/15ML (ENULOSE) 30ML UDC PO SCH ×3 (08:31→19:57)
--- NOTE | 2022-09-17 14:50 | Physical Therapy Daily Note ---
PT Daily Note-Current Subjective Patient sitting in chair upon PT arrival, agreeable to treatment. Rates pain at 0/10. Pain Section J - Health Conditions 1. Rarely or not at all 2. Occasionally 3. Frequently 4. Almost constantly 8. Unable to answer Pain Effect on Sleep: 8 Pain Interference with Therapy: 8 Pain Interference w/Day-to-Day: 8 Mental Status Patient Orientation: Person Transfers SCALE: Activities may be completed with or without assistive devices. 6-Pliwgqjmmx-vtdirli completes the activity by him/herself with no assistance from a helper. 5-Set-up or Clean-up Assistance-helper sets up or cleans up; patient completes activity. [place]ner assists only prior to or following the activity. 4-Supervision or Touching Assistance-helper provides verbal cues and/or touching/steadying and/or contact guard assistance as patient completes activity. Assistance may be provided throughout the activity or intermittently. 3-Partial/Moderate Assistance-helper does LESS THAN HALF the effort. Kenner lifts, holds or supports trunk or limbs, but provides less than half the effort. 2-Substantial/Maximal Assistance-helper does MORE THAN HALF the effort. [place]ner lifts or holds trunk or limbs and provides more than half the effort. 1-Dglrynqoe-sjgzkw does ALL the effort. Patient does none of the effort to complete the activity. Or, the assistance of 2 or more helpers is required for the patient to complete the activity. If activity was not attempted, code reason: 7-Patient Refused. 9-Not Applicable-not attempted and the patient did not perform the activity before the current illness, exacerbation or injury. 10-Not Attempted due to Environmental Limitations-(lack of equipment, weather restraints, etc.). 88-Not Attempted due to Medical Conditions or Safety Concerns. Sit to Stand (QC): 2 Chair/Vnp-pg-Bfybs Xfer(QC): 2 Weight Bearing Right Lower Extremity: Right Full Weight Bearing Left Lower Extremity: Left Full Weight Bearing Gait Training Does the Patient Walk?: Yes Distance: 120 feet Walk 10 feet (QC): 3 Walk 50 ft with 2 Turns(QC): 3 Gait Persons Needed: 1 Gait Assistive Device: FWW Assessment Current Status: Fair Progress Patient tolerated treatment fair. He performs all observed transfers with max A. Patient ambulates 120 feet with FWW, with min/mod A and verbal cues for safety, progression, posture and control of FWW. Patient tends to allow the FWW to move too far from his body. Patient in chair post treatment with all needs met, nursing notified, call light in hand and chair alarm activated. PT Retirement Goals Rug Touch Up Painter Goals PT Retirement Goals Time Frame: Oct 06, 2022 Roll Left & Right (QC): 6 Sit to Lying (QC): 6 Lying-Sitting on Side/Bed(QC): 6 Sit to Stand (QC): 6 Chair/Mlj-sn-Ovxhj Xfer(QC): 6 Toilet Transfer (QC): 6 Walk 10 feet (QC): 5 Walk 50ft with 2 Turns (QC): 5 Walk 150 ft (QC): 5 PT Plan Treatment/Plan Treatment Plan: Continue Plan of Care Treatment Plan: Bed Mobility, Education, Functional Activity Huang, Functional Strength, Gait, Safety, Therapeutic Exercise, Transfers Treatment Duration: Oct 06, 2022 Frequency: 6 times per week Estimated Hrs Per Day: .25 hour per day Patient and/or Family Agrees t: Yes Safety Risks/Education Patient Education: Gait Training, Transfer Techniques Time Time In: 1020 Time Out: 1033 DATE: September 17, 2022 Total Billed Treatment Time: 13 Total Billed Treatment Visit, GT THERON HUNTER PT September 17, 2022 14:50
[2022-09-18 03:37] VITALS: BP 119/68
[2022-09-18] MEDS: FUROSEMIDE 40 MG (LASIX) TAB PO SCH (06:10)
--- NOTE | 2022-09-18 06:10 | Progress Note - Hospitalist ---
Subjective HPI/CC On Admission Date Seen by Provider: September 18, 2022 Time Seen by Provider: 09:00 Objective Exam Vital Signs Vital Signs Date Time Temp Pulse Resp B/P (MAP) Pulse Ox O2 Delivery O2 Flow Rate FiO2 09/18/22 14:55 09/18/22 11:19 36.5 84 18 94 Room Air 09/18/22 03:37 0.00 0.00 09/13/22 19:31 98 Capillary Refill : Less Than 3 Seconds Results/Procedures Lab Patient resulted labs reviewed. Assessment/Plan Assessment and Plan Assess & Plan/Chief Complaint (1) Hepatic encephalopathy (2) Acute kidney injury (3) Debility (4) Cirrhosis (5) Hypertension Status: Chronic Obesity Plan: Therapy Continue lactulose Supportive care Hep-Lock IV fluid DC catheter ERIKA MENDES DO September 18, 2022 06:10
[2022-09-18 07:27] VITALS: BP 129/66
[2022-09-18] MEDS: ALLOPURINOL 100 MG (ZYLOPRIM) TAB PO SCH (07:50)
[2022-09-18] MEDS: RIFAXIMIN 550 MG TABLET (XIFAXAN) PO SCH (07:50)
[2022-09-18] MEDS: meTOproloL SUCCINATE 50 MG (TOPROL XL) TAB PO SCH (07:50)
[2022-09-18] MEDS: ASPIRIN E.C. 81 MG (ECOTRIN) TAB PO SCH (07:50)
[2022-09-18] MEDS: GABAPENTIN 300 MG (NEURONTIN) CAP PO SCH ×2 (07:50→13:15)
[2022-09-18] MEDS: VITAMIN D3 25 MCG (1,000 UNITS) TABLET PO SCH (07:50)
[2022-09-18] MEDS: LACTULOSE SYRUP 10GM/15ML (ENULOSE) 30ML UDC PO SCH ×2 (07:51→13:16)
[2022-09-18] MEDS: KCL 10 MEQ TAB (MICRO K) PO SCH (07:51)
[2022-09-18] MEDS: MAGNESIUM OXIDE (MAG-OX)400 MG TAB PO SCH (07:51)
[2022-09-18] MEDS: SPIRONOLACTONE 25 MG (ALDACTONE) TAB PO SCH (07:51)
--- NOTE | 2022-09-18 10:30 | Physical Therapy Daily Note ---
PT Daily Note-Current Subjective Patient agrees to PT. Pain Section J - Health Conditions 1. Rarely or not at all 2. Occasionally 3. Frequently 4. Almost constantly 8. Unable to answer Pain Effect on Sleep: 8 Pain Interference with Therapy: 8 Pain Interference w/Day-to-Day: 8 Mental Status Patient Orientation: Person, Time Transfers SCALE: Activities may be completed with or without assistive devices. 7-Oxiuqaomlz-uafxyrr completes the activity by him/herself with no assistance from a helper. 5-Set-up or Clean-up Assistance-helper sets up or cleans up; patient completes activity. [place]avares assists only prior to or following the activity. 4-Supervision or Touching Assistance-helper provides verbal cues and/or touching/steadying and/or contact guard assistance as patient completes activity. Assistance may be provided throughout the activity or intermittently. 3-Partial/Moderate Assistance-helper does LESS THAN HALF the effort. Tavares lifts, holds or supports trunk or limbs, but provides less than half the effort. 2-Substantial/Maximal Assistance-helper does MORE THAN HALF the effort. Tavares lifts or holds trunk or limbs and provides more than half the effort. 6-Peuncarbx-wfojvy does ALL the effort. Patient does none of the effort to complete the activity. Or, the assistance of 2 or more helpers is required for the patient to complete the activity. If activity was not attempted, code reason: 7-Patient Refused. 9-Not Applicable-not attempted and the patient did not perform the activity before the current illness, exacerbation or injury. 10-Not Attempted due to Environmental Limitations-(lack of equipment, weather restraints, etc.). 88-Not Attempted due to Medical Conditions or Safety Concerns. Lying to Sitting/Side of Bed(Q: 4 Sit to Stand (QC): 4 Chair/Otb-qm-Wivps Xfer(QC): 4 Weight Bearing Right Lower Extremity: Right Full Weight Bearing Left Lower Extremity: Left Full Weight Bearing Gait Training Distance: 350' Walk 10 feet (QC): 4 Walk 50 ft with 2 Turns(QC): 4 Walk 150 ft (QC): 4 Gait Assistive Device: FWW VC's for body placement in FWW Assessment Much improved with functional endurance and gait. Patient is up in recliner with chair alarm activated. PT Half-Way Goals Business Rules Analyst Goals PT Half-Way Goals Time Frame: Oct 06, 2022 Roll Left & Right (QC): 6 Sit to Lying (QC): 6 Lying-Sitting on Side/Bed(QC): 6 Sit to Stand (QC): 6 Chair/Pjl-nk-Mkvvw Xfer(QC): 6 Toilet Transfer (QC): 6 Walk 10 feet (QC): 5 Walk 50ft with 2 Turns (QC): 5 Walk 150 ft (QC): 5 PT Plan Treatment/Plan Treatment Plan: Continue Plan of Care Treatment Plan: Bed Mobility, Education, Functional Activity Huang, Functional Strength, Gait, Safety, Therapeutic Exercise, Transfers Treatment Duration: Oct 06, 2022 Frequency: 6 times per week Estimated Hrs Per Day: .25 hour per day Patient and/or Family Agrees t: Yes Time Time In: 925 Time Out: 938 DATE: September 18, 2022 Total Billed Treatment Time: 13 Total Billed Treatment 1 visit GT 13 min TAMARA MCKINNEY PT September 18, 2022 10:30
[2022-09-18] MEDS ORDERED: RIFA550T PO (10:34)
[2022-09-18] MEDS ORDERED: POTA15TA9 PO (10:34)
--- NOTE | 2022-09-18 10:34 | D/C HH Face to Face Order ---
D/C Face to Face Orders Reconcile Patient Problems Problems Reviewed?: Yes Instructions for Patient Via [facility], Patient Instructions/FollowUp: PCP 1 week Physician to follow Patient: [facility] Discharge Diet for Home: No Restrictions Patient Problems: Confusion Liver disease Patient Data-Allergies,Ht & Wt Patient Allergies: Coded Allergies: No Known Drug Allergies (Unverified , 12/18/10) Height (Feet): 6 Height (Inches): 1.00 Weight (Pounds): 279 Home Health Need/Face to Face Date of Face to Face: September 18, 2022 Clinical Findings: Generalized weakness and fatigue, Instability, Muscle weakness I have seen Pt [id number]: Yes Discharged To: Home Diagnosis/Conditions: Confusion Patient is Homebound due to: CognItive deficits, Yenny fall risk due to instabilty, Muscle weakness Homebound Status Due to the above stated illness, injury or surgical procedure (medical condition or diagnosis) and associated clinical findings, the patient is homebound because of his/her inability to leave home except with aid of a supportive device and/or person AND leaving the home requires a considerable and taxing effort or is medically contraindicated. Pt req the following assistanc: [facility] Nursing Orders Home Health Services Order: Nursing Services, [facility]-Evaluate & Treat, Physical Therapy-Evaluate & Treat Certify Stmt I certify that this patient is under my care and that I, a nurse practitioner or a physician; a speech pathologist assistant working with me, had a face to face encounter that - meets the physician face to face encounter requirements with this patient as dated. ERIKA MENDES DO September 18, 2022 10:34
[2022-09-18 11:19] VITALS: BP 124/74
--- NOTE | 2022-09-18 21:33 | Discharge Summary ---
Discharge Summary Hospital Course Was the Problem List Reviewed?: Yes Problems/Dx: (1) Acute kidney injury Status: Acute (2) Hypertension Status: Chronic (3) Debility (4) Cirrhosis Status: Chronic (5) Hepatic encephalopathy Status: Chronic Hospital Course Date of Admission: September 13, 2022 at 19:32 Admission Diagnosis : Family Physician/Provider: [facility] Date of Discharge: 09/18/22 Discharge Diagnosis: [ ] Hospital Course: Hospital course: Patient had a lengthy hospital course due to alcohol withdrawal and elevated creatinine. IV fluids resolve the acute kidney injury. Lactulose initiated after enemas started the process is confusion but he was back to baseline which was slightly confused per he was discharged in improved condition. Labs and Pending Lab Test: Microbiology 09/14/22 Urine Culture - Final, Complete Strep agalactiae Group B Home Meds Active Xifaxan (Rifaximin) 550 Mg Tablet 550 Mg PO BID Potassium Citrate ER (Potassium Citrate) 15 Meq (1620 Mg) Tab 15 Meq PO DAILY Reported Vitamin D3 (Cholecalciferol (Vitamin D3)) 50 Mcg (2000 Unit) Tablet 50 Mcg PO DAILY Magnesium (Magnesium Oxide) 250 Mg Tablet 250 Mg PO DAILY Aspirin EC (Aspirin) 81 Mg Tablet.dr 81 Mg PO DAILY Cyclobenzaprine HCl 10 Mg Tablet 10 Mg PO Q8H PRN Aldactone (Spironolactone) 50 Mg Tablet 50 Mg PO DAILY Furosemide 40 Mg Tablet 40 Mg PO DAILY Allopurinol 100 Mg Tablet 100 Mg PO DAILY Neurontin (Gabapentin) 300 Mg Capsule 600 Mg PO 1200,HS TAKES 2 (300MG) CAPS Neurontin (Gabapentin) 300 Mg Capsule 300 Mg PO DAILY Metoprolol Succinate 50 Mg Tab.er.24h 50 Mg PO DAILY Simvastatin 40 Mg Tablet 40 Mg PO HS Lactulose 10 Gram/15 Ml Solution 45 Ml PO QID Assessment/Pt Instructions PCP in 1 week Discharge Planning: <30 minutes discharge planning Discharge Instructions Discharge Diet: Regular Diet Discharge Physical Examination Vital Signs Vital Signs Date Time Temp Pulse Resp B/P (MAP) Pulse Ox O2 Delivery O2 Flow Rate FiO2 09/18/22 14:55 09/18/22 11:19 36.5 84 18 94 Room Air 09/18/22 03:37 0.00 0.00 09/13/22 19:31 98 General Appearance: No Apparent Distress, WD/WN, Chronically ill Allergies: Coded Allergies: No Known Drug Allergies (Unverified , 12/18/10) Discharge Summary Date of Admission September 13, 2022 at 19:32 Date of Discharge September 18, 2022 at 15:20 Discharge Date: September 18, 2022 Discharge Diagnosis (1) Hepatic encephalopathy (2) Acute kidney injury (3) Debility (4) Cirrhosis (5) Hypertension Status: Chronic Obesity Plan: Therapy Continue lactulose Supportive care Hep-Lock IV fluid DC catheter ERIKA MENDES DO September 18, 2022 21:33
== END 2022-09-18 15:20 | disposition home health service (06) | DRG 442 ==
LOC: EDUNIT# 12:12 → ER 12:13 → UNDOADMOB 14:44 → 4TH 14:44 → OBSVTOIN 19:32 → INTOOBSV 19:32 → OBSVTOIN 09-17 19:32 → UNDODISIN 09-18 15:20
PROVIDERS: ADMIT Family Medicine; ATTEND Internal Medicine
DX: K76.82 Hepatic encephalopathy (principal); N17.9 Acute kidney failure, unspecified; K74.60 Unspecified cirrhosis of liver; I10 Essential (primary) hypertension; E78.5 Hyperlipidemia, unspecified; Z87.891 Personal history of nicotine dependence; Z79.82 Long term (current) use of aspirin; Z79.899 Other long term (current) drug therapy
CPT/HCPCS: 36415; 71046; 80048; 80053; 81000; 82140; 85025; 85027; 85610; 85730; 87088; 94760; G0378